=== PATIENT | male | born 1960 | race Caucasian/White ===

== ENCOUNTER 2020-01-28 11:04 | Emergency (ER) | payer BC ==
[2020-01-28] MEDS ORDERED: Esmolol 100 MG/10 ML SDV IVPUSH ONE (11:58)
[2020-01-28] MEDS ORDERED: Phytonadione 10 MG in Sodium Chloride 0.9% 50 ML IV ONE (12:04)
[2020-01-28 12:06] LABS: ANION GAP 10.9 mEq/L (7-13); CHLORIDE,CL 103 mmol/L (98-107); SODIUM,NA 139 mmol/L (136-145)
--- NOTE | 2020-01-28 12:08 | EDM.PDOC ---
ED HPI GENERAL MEDICAL PROBLEM - General Chief Complaint: Headache Stated Complaint: BRAIN BLEED Time Seen by Provider: 01/28/20 11:25 Source of Information: Reports: Patient, Family, RN, RN Notes Reviewed History Limitations: Reports: No Limitations - History of Present Illness INITIAL COMMENTS - FREE TEXT/NARRATIVE: Patient presents to ER from 's office to be transferred to [place]. Patient's states in mid October the patient had Covid symptoms with 2 - tests. After 1 week all symptoms resolved except a dull headache that persisted. Patient was treated for sinus infection once with a Z-Tim, and most recently with Augmentin, which he is to finish tomorrow. States he has felt some sinus pressure and plugging of the ears as well. states the patient has been driving and working up until Sunday. States on Sunday and Sunday he laid in his chair, had no energy, and was at a loss for words momentarily from time to time. Patient is alert and oriented upon arrival. Has been doctoring with his primary, today had an MRI which showed a subdural hematoma with midline shift. His primary doctor has contacted neurosurgery at [facility]. And has been accepted there. Patient denies any weakness. Does admit to having difficulty forming texts. States he does not have difficulty reading and understanding. Patient states the headaches have been treated with Tylenol, which helps for a short amount of time, but never completely relieves the headache. Patient is on Coumadin for history of PE. Last INR was checked on Sunday and was 1.4. Onset: Gradual - Related Data Allergies Allergy/AdvReac Type Severity Reaction Status Date / Time ciprofloxacin Allergy Rash Unverified 01/28/20 12:41 Sulfa (Sulfonamide Allergy Rash Unverified 01/28/20 12:41 Antibiotics) Home Meds: Home Meds Amoxicillin/Potassium Clav [Amox-Clav 875-125 mg Tablet] 1 tab PO BID 01/28/20 [History] Warfarin Sodium 5 mg PO ASDIRECTED 01/28/20 [History] ED ROS GENERAL - Review of Systems Review Of Systems: Comprehensive ROS is negative, except as noted in HPI. ED EXAM, NEURO - Physical Exam Exam: See Below Exam Limited By: No Limitations General Appearance: Alert, WD/WN, No Apparent Distress Eye Exam: Bilateral Eye: PERRL (3, brisk) Ears: Normal External Exam, Hearing Grossly Normal Nose: Normal Inspection Throat/Mouth: Normal Inspection, Normal Voice, No Airway Compromise Head Exam: Atraumatic, Normocephalic Neck: Normal Inspection, Supple, Non-Tender, Full Range of Motion Respiratory/Chest: No Respiratory Distress, Lungs Clear, Normal Breath Sounds, No Accessory Muscle Use, Chest Non-Tender Cardiovascular: Normal Peripheral Pulses, Regular Rate, Rhythm, No Edema, No Gallop, No JVD, No Murmur, No Rub GI/Abdominal: Normal Bowel Sounds, Soft, Non-Tender, No Organomegaly, No Distention, No Abnormal Bruit, No Mass (Male) Exam: Deferred Rectal (Males) Exam: Deferred Neurological: Alert, Normal Mood/Affect, Normal Dorsiflexion, CN II-XII Intact, Normal Plantar Flexion, Normal Gait, Normal Reflexes, No Motor/Sensory Deficits, Oriented x 3 Back Exam: Normal Inspection, Full Range of Motion Extremities: Normal Inspection, Normal Range of Motion, Non-Tender, No Pedal Edema, Normal Capillary Refill Psychiatric: Normal Affect, Normal Mood Skin Exam: Warm, Dry, Intact, Normal Color, No Rash Course - Vital Signs Last Recorded V/S: Last Vital Signs Temp 98.3 F 01/28/20 11:09 Pulse 93 01/28/20 11:09 Resp 16 01/28/20 11:09 BP 152/85 H 01/28/20 11:09 Pulse Ox 100 01/28/20 11:09 - Orders/Labs/Meds Labs: Laboratory Tests 01/28/20 01/28/20 01/28/20 Range/Units 11:18 11:18 11:18 WBC 9.5 (5.0-10.0) 10^3/uL RBC 5.43 (4.6-6.2) 10^6/uL Hgb 17.1 (14.0-18.0) g/dL Hct 49.6 (40.0-54.0) % MCV 91.3 (80-100) fL MCH 31.5 (27.0-34.0) pg MCHC 34.5 (33.0-35.0) g/dL Plt Count 167 (150-450) 10^3/uL Neut % (Auto) 43.3 (42.2-75.2) % Lymph % (Auto) 34.9 (20.5-50.1) % [place] % (Auto) 9.1 H (2-8) % Eos % (Auto) 12.3 H (1.0-3.0) % Baso % (Auto) 0.4 (0.0-1.0) % PT 15.4 H (9.0-12.0) SEC INR 1.6 H (0.9-1.2) Sodium 139 (136-145) mmol/L Potassium 3.9 (3.5-5.1) mmol/L Chloride 103 (98-107) mmol/L Carbon Dioxide 29 (21-32) mmol/L Anion Gap 10.9 (7-13) mEq/L BUN 19 H (7-18) mg/dL Creatinine 1.10 (0.70-1.30) mg/dL Est Cr Clr Drug Dosing 75.11 mL/min Estimated GFR (MDRD) > 60 BUN/Creatinine Ratio 17.3 (No establ ref range) Glucose 112 H (74-99) mg/dL Calcium 8.9 (8.5-10.1) mg/dL Total Bilirubin 0.6 (0.2-1.0) mg/dL AST 25 (15-37) U/L ALT 41 (16-63) U/L Alkaline Phosphatase 98 (46-116) U/L Total Protein 7.4 (6.4-8.2) g/dL Albumin 3.6 (3.4-5.0) g/dL Globulin 3.8 Albumin/Globulin Ratio 0.9 SARS CoV-2 RNA Rapid MIKI (NEGATIVE) 01/28/20 Range/Units 11:38 WBC (5.0-10.0) 10^3/uL RBC (4.6-6.2) 10^6/uL Hgb (14.0-18.0) g/dL Hct (40.0-54.0) % MCV (80-100) fL MCH (27.0-34.0) pg MCHC (33.0-35.0) g/dL Plt Count (150-450) 10^3/uL Neut % (Auto) (42.2-75.2) % Lymph % (Auto) (20.5-50.1) % [place] % (Auto) (2-8) % Eos % (Auto) (1.0-3.0) % Baso % (Auto) (0.0-1.0) % PT (9.0-12.0) SEC INR (0.9-1.2) Sodium (136-145) mmol/L Potassium (3.5-5.1) mmol/L Chloride (98-107) mmol/L Carbon Dioxide (21-32) mmol/L Anion Gap (7-13) mEq/L BUN (7-18) mg/dL Creatinine (0.70-1.30) mg/dL Est Cr Clr Drug Dosing mL/min Estimated GFR (MDRD) BUN/Creatinine Ratio (No establ ref range) Glucose (74-99) mg/dL Calcium (8.5-10.1) mg/dL Total Bilirubin (0.2-1.0) mg/dL AST (15-37) U/L ALT (16-63) U/L Alkaline Phosphatase (46-116) U/L Total Protein (6.4-8.2) g/dL Albumin (3.4-5.0) g/dL Globulin Albumin/Globulin Ratio SARS CoV-2 RNA Rapid MIKI Negative (NEGATIVE) Meds: Medications Discontinued Medications Generic Name Dose Route Start Last Admin Trade Name Freq PRN Reason Stop Dose Admin Esmolol HCl 50 mg 01/28/20 11:58 01/28/20 12:59 Esmolol IVPUSH 01/28/20 11:59 Not Given ONETIME ONE Phytonadione 10 mg/ Sodium 51 mls @ 100 mls/hr 01/28/20 12:04 01/28/20 12:28 Chloride IV 01/28/20 12:34 100 mls/hr NOW ONE Administration Labetalol HCl 5 mg 01/28/20 12:18 01/28/20 12:32 Normodyne IVPUSH 01/28/20 12:19 Not Given ONETIME ONE - Re-Assessments/Exams Free Text/Narrative Re-Assessment/Exam: 01/29/20 09:28 Discussed patient case with Dr. Westfall in the ER who agreed to accept the patient for transfer to [facility]. Departure - Departure Time of Disposition: 12:52 Disposition: DC/Tfer to Acute Hospital 02 Condition: Fair Clinical Impression: Subdural hematoma - Discharge Information *PRESCRIPTION DRUG MONITORING PROGRAM REVIEWED*: No *COPY OF PRESCRIPTION DRUG MONITORING REPORT IN PATIENT MARS: No Referrals: Dulce Newell MD [Primary Care Provider] - Forms: ED Department Discharge, Interfacility Transfer [facility] Sepsis Event Note (ED) - Evaluation Sepsis Screening Result: No Definite Risk
[2020-01-28] MEDS ORDERED: Labetalol 20 MG/4 ML Syringe IVPUSH ONE (12:18)
== END 2020-01-28 12:52 ==
LOC: DL.ED 11:04
DX: I62.00 Nontraumatic subdural hemorrhage, unspecified (principal); Z20.828 Contact with and (suspected) exposure to other viral communicable diseases; Z88.2 Allergy status to sulfonamides; Z88.1 Allergy status to other antibiotic agents; Z79.01 Long term (current) use of anticoagulants
CPT/HCPCS: 36415; 80053; 85025; 85610; 87635; 96365; 99285; J3430; U0002